=== PATIENT | male | born 2005 | race Caucasian/White ===

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

== ENCOUNTER 2024-06-15 12:47 | Emergency (ER) | payer SELFPAY | END 2024-06-15 15:10 | disposition home or self-care (01) | LOC: ERS 12:47 | DX: R55 Syncope and collapse (principal); S16.1XXA Strain of muscle, fascia and tendon at neck level, initial encounter; S50.312A Abrasion of left elbow, initial encounter; W19.XXXA Unspecified fall, initial encounter; Y93.9 Activity, unspecified | CPT/HCPCS: 72125 ==